=== PATIENT | male | born 2000 | race African-American/Black ===

== ENCOUNTER 2019-06-17 18:26 | Emergency (ER) | payer SELFPAY ==
[2019-06-17 19:06] LABS: Bilirubin Negative (Negative); Blood, Urine Negative (Negative); Clarity Clear (Clear); Glucose, Urine (Dipstick) Normal (Negative); Leukocyte 250 Leu/uL (Negative); Nitrite Negative (Negative); Protein, Urine (Dipstick) Negative (Neg-Trace); RBC/HPF 0-3 HPF (0-3); Squamous Epithelial 0-3 HPF (0-3); Urobilinogen Normal mg/dL (Less than 2)
[2019-06-17 19:16] LABS: Bacteria/HPF Rare-Few HPF (None Seen)
[2019-06-20 04:53] LABS: Chlam.trachomatis by PCR,Urine DETECTED (NotDetected)
== END 2019-06-17 19:34 | disposition home or self-care (01) ==
LOC: ERS 18:26
DX: Z11.3 Encounter for screening for infections with a predominantly sexual mode of transmission (principal); F17.210 Nicotine dependence, cigarettes, uncomplicated
CPT/HCPCS: 81003; 81015; 87491; 87591; 99283

== ENCOUNTER 2021-05-02 02:34 | Emergency (ER) | payer SELFPAY | END 2021-05-02 03:25 | disposition home or self-care (01) | LOC: ERS 02:34 | DX: M62.830 Muscle spasm of back (principal); F17.210 Nicotine dependence, cigarettes, uncomplicated | CPT/HCPCS: 99283 ==

== ENCOUNTER 2021-06-18 21:17 | Emergency (ER) | payer SELFPAY ==
[2021-06-18] MEDS ORDERED: Dicyclomine 20 MG TAB ONE (22:12)
[2021-06-18] MEDS ORDERED: Sucralfate 1 GM/10 ML UDCUP ONE (22:12)
[2021-06-18] MEDS ORDERED: Acetaminophen 500 MG TAB ONE (22:12)
== END 2021-06-18 22:33 | disposition home or self-care (01) ==
LOC: ERS 21:17
DX: K29.00 Acute gastritis without bleeding (principal); F17.210 Nicotine dependence, cigarettes, uncomplicated
CPT/HCPCS: 99283

== ENCOUNTER 2021-06-19 13:22 | Emergency (ER) | payer SELFPAY ==
[2021-06-19] MEDS ORDERED: Metoclopramide HCl 10 MG TAB ONE (15:26)
[2021-06-19 23:41] LABS: SARS-CoV-2 PCR by NAA Not Detected (NotDetected)
== END 2021-06-19 15:42 | disposition home or self-care (01) ==
LOC: ERS 13:22
DX: R51.9 Headache, unspecified (principal); R11.0 Nausea; Z20.822 Contact with and (suspected) exposure to COVID-19; F17.210 Nicotine dependence, cigarettes, uncomplicated
CPT/HCPCS: 99284; U0003; U0005

== ENCOUNTER 2021-07-10 20:46 | Emergency (ER) | payer SELFPAY ==
[2021-07-10] MEDS ORDERED: Ibuprofen 800 MG TAB ONE (22:10)
== END 2021-07-10 22:22 | disposition home or self-care (01) ==
LOC: ERS 20:46
DX: M54.5 Low back pain (principal)
CPT/HCPCS: 99283

== ENCOUNTER 2023-01-26 16:52 | Emergency (ER) | payer SELFPAY ==
[2023-01-26] MEDS ORDERED: Proparacaine 0.5% Opth 15 ML BOT ONE (18:48)
[2023-01-26] MEDS ORDERED: Gentamicin Ophth Soln 0.3% 5 ml Bottle ONE (18:48)
[2023-01-26] MEDS ORDERED: Fluorescein Opthalmic Strip ONE (18:48)
== END 2023-01-26 19:36 | disposition home or self-care (01) ==
LOC: ERS 16:52
DX: S05.01XA Injury of conjunctiva and corneal abrasion without foreign body, right eye, initial encounter (principal); H10.9 Unspecified conjunctivitis; F17.210 Nicotine dependence, cigarettes, uncomplicated; W45.0XXA Nail entering through skin, initial encounter
CPT/HCPCS: 99283

== ENCOUNTER 2023-08-28 13:48 | Emergency (ER) | payer SELFPAY ==
[2023-08-28 15:05] LABS: SARS-CoV-2 NAA Rapid Test Not Detected (NotDetected)
[2023-08-28] MEDS ORDERED: Ibuprofen 200 MG TAB ONE (15:56)
== END 2023-08-28 15:57 | disposition home or self-care (01) ==
LOC: ERS 13:48
DX: J10.1 Influenza due to other identified influenza virus with other respiratory manifestations (principal); F17.210 Nicotine dependence, cigarettes, uncomplicated; Z20.822 Contact with and (suspected) exposure to COVID-19
CPT/HCPCS: 99283

== ENCOUNTER 2024-11-17 13:22 | Emergency (ER) | payer SELFPAY | END 2024-11-17 14:11 | disposition home or self-care (01) | LOC: ERS 13:22 | DX: J34.89 Other specified disorders of nose and nasal sinuses (principal); F17.210 Nicotine dependence, cigarettes, uncomplicated; F17.290 Nicotine dependence, other tobacco product, uncomplicated | CPT/HCPCS: 70160; 99283 ==